=== PATIENT | female | born 1960 | race American Indian/Alaskan Native ===

== ENCOUNTER 2018-05-21 12:49 | Outpatient (CLI) | payer MEDICAID ==
[2018-05-21] MEDS ORDERED: XYLOCAINE TOPICAL 4% TP ONE ×2 (13:20→14:36)
== END 2018-05-21 12:50 | disposition home or self-care (01) ==
LOC: WOUND 12:49
PROVIDERS: ATTEND Surgery
DX: S31.104A Unspecified open wound of abdominal wall, left lower quadrant without penetration into peritoneal cavity, initial encounter (principal); I11.0 Hypertensive heart disease with heart failure; I50.9 Heart failure, unspecified; Z99.2 Dependence on renal dialysis; Z90.710 Acquired absence of both cervix and uterus; X58.XXXA Exposure to other specified factors, initial encounter; Y93.89 Activity, other specified; Y92.89 Other specified places as the place of occurrence of the external cause; Y99.8 Other external cause status
CPT/HCPCS: 11042; 11045; 87075; 87116; G0463; 87076; 87186

== ENCOUNTER 2018-05-28 13:10 | Outpatient (CLI) | payer MEDICAID ==
[2018-05-28] MEDS ORDERED: XYLOCAINE TOPICAL 4% TP ONE ×2 (13:13→15:01)
[2018-05-28] MEDS ORDERED: SILVER NITRATE TP ONE ×2 (14:09→15:01)
== END 2018-05-28 13:11 | disposition home or self-care (01) ==
LOC: WOUND 13:10
PROVIDERS: ATTEND Surgery
DX: S31.104D Unspecified open wound of abdominal wall, left lower quadrant without penetration into peritoneal cavity, subsequent encounter (principal); I11.0 Hypertensive heart disease with heart failure; I50.9 Heart failure, unspecified; H54.40 Blindness, one eye, unspecified eye; Z99.2 Dependence on renal dialysis; Z90.710 Acquired absence of both cervix and uterus; Z68.41 Body mass index [BMI] 40.0-44.9, adult; X58.XXXD Exposure to other specified factors, subsequent encounter

== ENCOUNTER 2018-06-04 12:56 | Outpatient (CLI) | payer MEDICAID ==
[2018-06-04] MEDS ORDERED: XYLOCAINE TOPICAL 4% TP ONE ×2 (13:26→13:40)
== END 2018-06-04 12:57 | disposition home or self-care (01) ==
LOC: WOUND 12:56
PROVIDERS: ATTEND Surgery
DX: S31.104D Unspecified open wound of abdominal wall, left lower quadrant without penetration into peritoneal cavity, subsequent encounter (principal); I11.0 Hypertensive heart disease with heart failure; I50.9 Heart failure, unspecified; H54.40 Blindness, one eye, unspecified eye; Z99.2 Dependence on renal dialysis; Z90.710 Acquired absence of both cervix and uterus; Z68.41 Body mass index [BMI] 40.0-44.9, adult; X58.XXXD Exposure to other specified factors, subsequent encounter

== ENCOUNTER 2018-06-11 13:28 | Outpatient (CLI) | payer MEDICAID ==
[~2018-06-11 13:28] MED LIST: XYLOCAINE TOPICAL 4% TP ONE
[2018-06-11] MEDS ORDERED: XYLOCAINE TOPICAL 4% TP ONE (13:29)
[2018-06-11] MEDS ORDERED: SILVER NITRATE TP ONE ×2 (13:39→13:45)
== END 2018-06-11 13:29 | disposition home or self-care (01) ==
LOC: WOUND 13:28
PROVIDERS: ATTEND Surgery
DX: S31.104D Unspecified open wound of abdominal wall, left lower quadrant without penetration into peritoneal cavity, subsequent encounter (principal); I11.0 Hypertensive heart disease with heart failure; I50.9 Heart failure, unspecified; H54.40 Blindness, one eye, unspecified eye; Z99.2 Dependence on renal dialysis; Z90.710 Acquired absence of both cervix and uterus; Z68.41 Body mass index [BMI] 40.0-44.9, adult; X58.XXXD Exposure to other specified factors, subsequent encounter

== ENCOUNTER 2018-06-18 13:42 | Outpatient (CLI) | payer MEDICAID | END 2018-06-18 13:43 | disposition home or self-care (01) | LOC: WOUND 13:42 | PROVIDERS: ATTEND Surgery | DX: S31.104D Unspecified open wound of abdominal wall, left lower quadrant without penetration into peritoneal cavity, subsequent encounter (principal); I11.0 Hypertensive heart disease with heart failure; I50.9 Heart failure, unspecified; H54.40 Blindness, one eye, unspecified eye; Z99.2 Dependence on renal dialysis; Z90.710 Acquired absence of both cervix and uterus; Z68.41 Body mass index [BMI] 40.0-44.9, adult; X58.XXXD Exposure to other specified factors, subsequent encounter ==

== ENCOUNTER 2018-06-25 13:19 | Outpatient (CLI) | payer MEDICAID ==
[2018-06-25] MEDS ORDERED: XYLOCAINE TOPICAL 4% TP ONE (13:44)
== END 2018-06-25 13:20 | disposition home or self-care (01) ==
LOC: WOUND 13:19
PROVIDERS: ATTEND Surgery
DX: S31.104D Unspecified open wound of abdominal wall, left lower quadrant without penetration into peritoneal cavity, subsequent encounter (principal); I13.2 Hypertensive heart and chronic kidney disease with heart failure and with stage 5 chronic kidney disease, or end stage renal disease; N18.5 Chronic kidney disease, stage 5; I50.9 Heart failure, unspecified; H54.40 Blindness, one eye, unspecified eye; Z99.2 Dependence on renal dialysis; Z90.710 Acquired absence of both cervix and uterus; Z68.41 Body mass index [BMI] 40.0-44.9, adult; X58.XXXD Exposure to other specified factors, subsequent encounter

== ENCOUNTER 2018-07-02 11:04 | Outpatient (CLI) | payer MEDICAID ==
[2018-07-02] MEDS ORDERED: XYLOCAINE TOPICAL 4% TP ONE ×2 (11:16→11:26)
== END 2018-07-02 11:05 | disposition home or self-care (01) ==
LOC: WOUND 11:04
PROVIDERS: ATTEND Surgery
DX: S31.104D Unspecified open wound of abdominal wall, left lower quadrant without penetration into peritoneal cavity, subsequent encounter (principal); I13.2 Hypertensive heart and chronic kidney disease with heart failure and with stage 5 chronic kidney disease, or end stage renal disease; N18.5 Chronic kidney disease, stage 5; I50.9 Heart failure, unspecified; H54.40 Blindness, one eye, unspecified eye; Z99.2 Dependence on renal dialysis; Z90.710 Acquired absence of both cervix and uterus; Z68.41 Body mass index [BMI] 40.0-44.9, adult; X58.XXXD Exposure to other specified factors, subsequent encounter
CPT/HCPCS: 87075; 87076; 87116; 87186

== ENCOUNTER 2018-07-09 11:02 | Outpatient (CLI) | payer MEDICAID ==
[2018-07-09] MEDS ORDERED: XYLOCAINE TOPICAL 4% TP ONE ×2 (11:51→17:00)
== END 2018-07-09 11:03 | disposition home or self-care (01) ==
LOC: WOUND 11:02
PROVIDERS: ATTEND Surgery
DX: S31.104D Unspecified open wound of abdominal wall, left lower quadrant without penetration into peritoneal cavity, subsequent encounter (principal); I13.2 Hypertensive heart and chronic kidney disease with heart failure and with stage 5 chronic kidney disease, or end stage renal disease; N18.5 Chronic kidney disease, stage 5; I50.9 Heart failure, unspecified; H54.40 Blindness, one eye, unspecified eye; Z99.2 Dependence on renal dialysis; Z90.710 Acquired absence of both cervix and uterus; Z68.41 Body mass index [BMI] 40.0-44.9, adult; X58.XXXD Exposure to other specified factors, subsequent encounter

== ENCOUNTER 2018-07-23 10:51 | Outpatient (CLI) | payer MEDICAID ==
[2018-07-23] MEDS ORDERED: XYLOCAINE TOPICAL 4% TP ONE ×2 (11:28→15:22)
== END 2018-07-23 10:52 | disposition home or self-care (01) ==
LOC: WOUND 10:51
PROVIDERS: ATTEND Surgery
DX: S31.104D Unspecified open wound of abdominal wall, left lower quadrant without penetration into peritoneal cavity, subsequent encounter (principal); I13.2 Hypertensive heart and chronic kidney disease with heart failure and with stage 5 chronic kidney disease, or end stage renal disease; N18.5 Chronic kidney disease, stage 5; I50.9 Heart failure, unspecified; H54.40 Blindness, one eye, unspecified eye; Z99.2 Dependence on renal dialysis; Z90.710 Acquired absence of both cervix and uterus; Z68.41 Body mass index [BMI] 40.0-44.9, adult; X58.XXXD Exposure to other specified factors, subsequent encounter

== ENCOUNTER 2018-08-06 11:05 | Outpatient (CLI) | payer MEDICAID ==
[2018-08-06] MEDS ORDERED: XYLOCAINE TOPICAL 4% TP ONE ×2 (11:30→11:44)
== END 2018-08-06 11:06 | disposition home or self-care (01) ==
LOC: WOUND 11:05
PROVIDERS: ATTEND Surgery
DX: S31.104D Unspecified open wound of abdominal wall, left lower quadrant without penetration into peritoneal cavity, subsequent encounter (principal); I13.2 Hypertensive heart and chronic kidney disease with heart failure and with stage 5 chronic kidney disease, or end stage renal disease; N18.5 Chronic kidney disease, stage 5; I50.9 Heart failure, unspecified; H54.40 Blindness, one eye, unspecified eye; Z99.2 Dependence on renal dialysis; Z90.710 Acquired absence of both cervix and uterus

== ENCOUNTER 2018-08-27 10:17 | Outpatient (CLI) | payer MEDICAID ==
[2018-08-27] MEDS ORDERED: XYLOCAINE TOPICAL 4% TP ONE ×2 (10:54→15:25)
== END 2018-08-27 10:18 | disposition home or self-care (01) ==
LOC: WOUND 10:17
PROVIDERS: ATTEND Surgery
DX: S31.104D Unspecified open wound of abdominal wall, left lower quadrant without penetration into peritoneal cavity, subsequent encounter (principal); I13.2 Hypertensive heart and chronic kidney disease with heart failure and with stage 5 chronic kidney disease, or end stage renal disease; N18.5 Chronic kidney disease, stage 5; I50.9 Heart failure, unspecified; H54.40 Blindness, one eye, unspecified eye; Z99.2 Dependence on renal dialysis; Z90.710 Acquired absence of both cervix and uterus